=== PATIENT | male | born 1980 | race Caucasian/White ===

== ENCOUNTER 2016-12-20 15:07 | Emergency (ER) | payer BC ==
--- NOTE | 2016-12-20 15:17 | EDM.PDOC ---
ED HPI GENERAL MEDICAL PROBLEM - General Stated Complaint: CHEST PAIN Time Seen by Provider: 12/20/16 15:12 Source of Information: Reports: Patient - History of Present Illness INITIAL COMMENTS - FREE TEXT/NARRATIVE: HISTORY AND PHYSICAL: History of present illness: []Patient presents with pain in distribution of right shoulder girdle and contrast trapezius distribution, he has been pain with turning his head to the right as well as lifting his arm pain is across his shoulder and infraspinatus as well as generally the entire trapezius distribution rates pain 6 out of 10 he has taken ibuprofen and he does admit to taking some muscle relaxant from his which provided no benefit Ibuprofen is providing some benefit however is concerned as he does have some pain with movement over right chest as well as with deep inspiration No fever nausea vomiting chills sweats no headache dizziness palpitation bowel or urine symptoms no radiation to left arm neck or jaw not associated with shortness of breath or diaphoresis Review of systems: As per history of present illness and below otherwise all systems reviewed and negative. Past medical history: As per history of present illness and as reviewed below otherwise noncontributory. Surgical history: As per history of present illness and as reviewed below otherwise noncontributory. Social history: No reported history of drug or alcohol abuse. Family history: As per history of present illness and as reviewed below otherwise noncontributory. Physical exam: HEENT: Atraumatic, normocephalic, pupils reactive, negative for conjunctival pallor or scleral icterus, mucous membranes moist, throat clear, neck supple, nontender, trachea midline. Lungs: Clear to auscultation, breath sounds equal bilaterally, chest nontender. Heart: S1S2, regular, negative for clicks, rubs, or JVD. Abdomen: Soft, nondistended, nontender. Negative for masses or hepatosplenomegaly. Negative for costovertebral tenderness. Pelvis: Stable nontender. Genitourinary: Deferred. Rectal: Deferred. Extremities: Atraumatic, negative for cords or calf pain. Neurovascular unremarkable. I can reproduce sharp pain intense pain with passive forwarded extension of his right arm and palpation over right SCM and right trapezius distribution entire limb neurovascularly intact Neuro: Awake, alert, oriented. Cranial nerves II through XII unremarkable. Cerebellum unremarkable. Motor and sensory unremarkable throughout. Exam nonfocal. Diagnostics: []EKG Therapeutics: []Ibuprofen Impression: []Muscle spasm Reproducible chest wall pain Definitive disposition and diagnosis as appropriate pending reevaluation and review of above. ED ROS GENERAL - Review of Systems Review Of Systems: ROS reveals no pertinent complaints other than HPI. ED EXAM, GENERAL - Physical Exam Exam: See Below Departure - Departure Time of Disposition: 15:15 Disposition: Home, Self-Care 01 Condition: Good Clinical Impression: Muscle spasm - Discharge Information Additional Instructions: Continue ibuprofen 400-800 mg 3 times daily 7-10 days Ice 20 minute intervals 3 times daily 7-10 days No heavy lifting Do not sleep on right shoulder Follow-up with primary care in 2 weeks sooner as needed The following information is given to patients seen in the emergency department who are being discharged to home. This information is to outline your options for follow-up care. We provide all patients seen in our emergency department with a follow-up referral. The need for follow-up, as well as the timing and circumstances, are variable depending upon the specifics of your emergency department visit. If you don't have a primary care physician on staff, we will provide you with a referral. We always advise you to contact your personal physician following an emergency department visit to inform them of the circumstance of the visit and for follow-up with them and/or the need for any referrals to a consulting specialist. The emergency department will also refer you to a specialist when appropriate. This referral assures that you have the opportunity for follow-up care with a specialist. All of these measure are taken in an effort to provide you with optimal care, which includes your follow-up. Under all circumstances we always encourage you to contact your private physician who remains a resource for coordinating your care. When calling for follow-up care, please make the office aware that this follow-up is from your recent emergency room visit. If for any reason you are refused follow-up, please contact the [facility] emergency department at and asked to speak to the emergency department charge nurse.
[2016-12-20 15:40] VITALS: BP 125/80
== END 2016-12-20 15:39 | disposition home or self-care (01) ==
LOC: MW.ED 15:07
DX: M62.838 Other muscle spasm (principal); R07.89 Other chest pain
CPT/HCPCS: 93005; 99282; 99283-25